=== PATIENT | male | born 1990 | race Caucasian/White ===

== ENCOUNTER 2020-08-31 23:30 | Inpatient (IN) ==
[2020-09-01] MEDS ORDERED: *HR* LORazepam 2 MG/ML VIAL IM PRN (10:04)
[2020-09-01] MEDS ORDERED: haloperidoL 5 MG TABLET PO PRN (10:04)
[2020-09-01] MEDS ORDERED: MOM Conc 10 ML UD.LIQ PO PRN (10:04)
[2020-09-01] MEDS ORDERED: Acetaminophen 325 MG TABLET PO PRN (10:04)
[2020-09-01] MEDS ORDERED: Haloperidol Lactate 5 MG/ML VIAL IM PRN (10:04)
[2020-09-01] MEDS ORDERED: Mag Hydrox/Al Hydrox/Simeth 30 ML UDC PO PRN (10:04)
[2020-09-01] MEDS ORDERED: *HR* LORazepam 1 MG TABLET PO PRN (10:04)
[2020-09-01] MEDS ORDERED: Nicotine 21 MG PATCH.TD24 TD SCH (11:45)
[2020-09-01 20:19] LABS: Hepatitis B Surface Antigen Nonreactive (Nonreactive)
[2020-09-01] MEDS: hydrOXYzine pamoate 25 MG CAPSULE PO PRN (20:47)
[2020-09-01] MEDS: Lithium Carbonate ER 300 MG TABLET.ER PO SCH (20:47)
[2020-09-01] MEDS: traZODone 50 MG TABLET PO PRN (20:47)
[2020-09-01 20:48] LABS: Hepatitis B Core IgM Nonreactive (Nonreactive)
[2020-09-01 20:49] LABS: Hepatitis C Virus Antibody Nonreactive (Nonreactive)
[2020-09-01 20:50] LABS: Hepatitis A Antibody IgM Nonreactive (Nonreactive)
[2020-09-02] MEDS: Lithium Carbonate ER 300 MG TABLET.ER PO SCH ×2 (09:40→20:55)
[2020-09-02] MEDS: Nicotine 2 MG GUM BC PRN (15:03)
[2020-09-02] MEDS: hydrOXYzine pamoate 25 MG CAPSULE PO PRN (20:55)
[2020-09-02] MEDS: traZODone 50 MG TABLET PO PRN (20:55)
[2020-09-03] MEDS: Lithium Carbonate ER 300 MG TABLET.ER PO SCH (09:20)
[2020-09-03 10:16] VITALS: BP 128/83
[2020-09-03] MEDS: Nicotine 2 MG GUM BC PRN ×2 (14:38→17:37)
== END 2020-09-03 18:45 | disposition home or self-care (01) | DRG 753 ==
LOC: EMEROOARM 23:30 → 1ANU 09-01 10:03
PROVIDERS: ADMIT Psychiatry & Neurology Psychiatry; ATTEND Psychiatry & Neurology Psychiatry